=== PATIENT | female | born 1965 ===

== ENCOUNTER 2016-11-15 09:02 | Emergency (ER) | payer OTHER ==
[2016-11-15 09:15] VITALS: BMI 37.7
--- NOTE | 2016-11-15 09:52 | C.PDOC ---
History Of Present Illness 51 year old female presents to ED with complaints of left leg pain for about one month and gradually worsening over the past 2 weeks. She states she has noticed increased swelling to left leg and has pain to her inner thigh which radiates to knee and calf. She admits to chronic knee pain and has received prior injections to knee, but not recent. She ambulates with cane. Patient takes meloxicam daily for pain, took dose today without relief. Denies any chest pain, SOB, dizziness, numbness, weakness or injury. Time Seen by Provider: 11/15/16 09:25 Chief Complaint (Nursing): Lower Extremity Problem/Injury History Per: Patient History/Exam Limitations: no limitations Onset/Duration Of Symptoms: Days Current Symptoms Are (Timing): Still Present Past Medical History Reviewed: Historical Data, Nursing Documentation, Vital Signs Vital Signs: Last Vital Signs Temp 97.5 F L 11/15/16 11:14 Pulse 65 11/15/16 11:14 Resp 16 11/15/16 11:14 BP 127/85 11/15/16 11:14 Pulse Ox 97 11/15/16 12:44 - Medical History PMH: Bipolar Disorder, CAD, HTN, Hypercholesterolemia, Hypothyroidism Surgical History: Cholecystectomy Family History: States: No Known Family Hx - Social History Hx Tobacco Use: No Hx Alcohol Use: No Hx Substance Use: No - Immunization History Hx Tetanus Toxoid Vaccination: Yes Hx Influenza Vaccination: No (2013) Hx Pneumococcal Vaccination: No Review Of Systems Constitutional: Negative for: Fever, Chills Cardiovascular: Negative for: Chest Pain Respiratory: Negative for: Shortness of Breath Musculoskeletal: Positive for: Leg Pain Skin: Negative for: Rash Neurological: Negative for: Weakness, Numbness, Dizziness Physical Exam - Physical Exam Appears: Non-toxic, No Acute Distress Skin: Warm, Dry, No Rash Head: Atraumatic, Normacephalic Eye(s): bilateral: Normal Inspection Oral Mucosa: Moist Neck: Normal ROM Chest: Symmetrical Cardiovascular: Rhythm Regular, No Murmur Respiratory: Normal Breath Sounds, No Rales, No Rhonchi, No Wheezing Extremity: Tenderness (to left inner thigh, diffuse knee), Pedal Edema (Trace bilateral), Calf Tenderness (No erythema, no palpable cord,), Swelling ( noticeable swelling to left leg, mild ), Other (varicose vein ) Pulses: Left Dorsalis Pedis: Normal, Right Dorsalis Pedis: Normal Neurological/Psych: Oriented x3, Normal Speech Gait: With Assistance (Cane) ED Course And Treatment O2 Sat by Pulse Oximetry: 97 (RA) Pulse Ox Interpretation: Normal Medical Decision Making Medical Decision Making: Impression: left leg pain, rule out DVT Prior records reviewed: LE MRI from 06/28/16 shows thining of ACL suggestive of sprain and possible small tear of medial meniscus. Focal cartilage thinning. Small suprapatellar joint effusion. Plan: * Ultram * Venous doppler Progress, Reassess and Dispo: Venous doppler was negative. Patient remained well in no distress. Upon re- evaluation she reports pain improving. She is ambulating with cane. REcommend rest, elevation and follow up with orthopedic Disposition Counseled Patient/Family Regarding: Diagnosis, Need For Followup, Rx Given - Disposition Referrals: Dilia Littlejohn MD [Staff Provider] - Chris Jaquez III, MD [Staff Provider] - Disposition: HOME/ ROUTINE Disposition Time: 10:53 Condition: STABLE Additional Instructions: Young un seguimiento con la clnica o fernandez mdico de cabecera para gregorio evaluacin posterior. [place] tom medicamentos usuales segn lo recetado para cualquier dolor Tramadol es para el dolor juany segn sea necesario cada 8 horas El estudio Doppler fue negativo Regrese al servicio de urgencias en cualquier momento si los sntomas persisten o empeoran. Usted puede llamar al servicio de conserjera para cualquier ayuda [phone]. Prescriptions: traMADol [Ultram] 50 mg PO Q8 #20 tab Instructions: Knee Pain (ED) Forms: [employer] (Kyrgyz) Print Language: MEXICAN - POA Present On Arrival: None - Clinical Impression Clinical Impression: Pain of left knee and lower leg - PA / INDUSTRIAL PARAMEDIC / Resident Statement MD/DO has reviewed & agrees with the documentation as recorded. - Scribe Statement The provider has reviewed the documentation as recorded by the Scribviviane Lundy All medical record entries made by the Scribe were at my direction and personally dictated by me. I have reviewed the chart and agree that the record accurately reflects my personal performance of the history, physical exam, medical decision making, and the department course for this patient. I have also personally directed, reviewed, and agree with the discharge instructions and disposition.
[2016-11-15 11:15] VITALS: BP 127/85; PULSE 65; RESP 16; TEMP 97.5
[2016-11-15 12:45] VITALS: O2SAT 97
--- NOTE | 2016-11-19 10:38 | VASCLAB ---
PROCEDURE: Left Lower Extremity Venous Duplex Exam. HISTORY: pain left thigh and calf PRIORS: None. TECHNIQUE: Left common femoral, femoral, popliteal and posterior tibial, peroneal and great saphenous veins were evaluated. Flow was assessed with color Doppler, compressibility, assessment of phasic flow and augmentation response. Report prepared by MARIA LUISA Rodriguez, RVT FINDINGS: LEFT: 1. Common Femoral Vein: 1.1. Compressibility - Fully compressible: Thrombus - None : Flow - Phasic: Augmentation -Normal: Reflux - None. 2. Femoral Vein: 2.1. Compressibility - Fully compressible: Thrombus - None: Flow - Phasic: Augmentation -Normal: Reflux - None. 3. Popliteal Vein: 3.1. Compressibility - Fully compressible: Thrombus - None: Flow - Phasic: Augmentation -Normal: Reflux - None. 4. Posterior Tibial Vein: 4.1. Compressibility - Fully compressible: Thrombus - None: Flow - Phasic: Augmentation -Normal: Reflux - None. 5. Peroneal Vein: 5.1. Compressibility - Fully compressible: Thrombus - None: Flow - Phasic: Augmentation -Normal: Reflux - None. 6. Great Saphenous Vein: 6.1. Compressibility - Fully compressible: Thrombus - None: Flow - Phasic: Augmentation - Normal: Reflux - None. OTHER FINDINGS: IMPRESSION: No evidence of deep or superficial vein thrombosis of the left lower extremity with excellent venous flow. Normal valve function noted of the left side. Normal venous flow noted in the right common femoral vein.
== END 2016-11-15 11:16 | disposition home or self-care (01) ==
LOC: C.ER 09:02
DX: M25.562 Pain in left knee (principal)

== ENCOUNTER 2018-08-21 16:50 | Emergency (ER) | payer MEDICAID, OTHER ==
[2018-08-21 16:51] VITALS: BMI 38.4
[2018-08-21 17:03] VITALS: BP 133/87; TEMP 98.7
[2018-08-21] MEDS ORDERED: Sodium Chloride 0.9% 1,000 ML IV ONE (18:04)
[2018-08-21] MEDS ORDERED: Sodium Chloride 0.9% 1,000 ML ONE (18:35)
[2018-08-21 19:36] LABS: BASO # 0.1 K/uL (0.0-0.2); BASO % 1.1 % (0.0-2.0); EOS # 0.1 K/uL (0.0-0.7); EOS % 0.9 % (0.0-4.0); HEMOGLOBIN 13.6 g/dL (11.0-16.0); LYMPH # 3.7 K/uL (1.0-4.3); LYMPH % 41.1 % (20.0-40.0); MEAN CELL VOLUME 91.8 fL (81.0-99.0); MEAN CORPUSCULAR HEMOGLOBIN 30.8 pg (27.0-31.0); MEAN CORPUSCULAR HGB CONC 33.5 g/dL (33.0-37.0); MEAN PLATELET VOLUME 9.8 fL (7.2-11.7); MONO % 11.6 % (0.0-10.0); NEUT % 45.3 % (50.0-75.0); RBC 4.43 Mil/uL (3.80-5.20); WHITE BLOOD COUNT 8.9 K/uL (4.8-10.8)
[2018-08-21 19:41] LABS: SQUAMOUS EPITHIAL 3 /hpf (0-5); URINE BACTERIA MOD (<OCC); URINE BILIRUBIN NEGATIVE (NEGATIVE); URINE BLOOD NEGATIVE (NEGATIVE); URINE CLARITY Hazy (Clear); URINE COLOR Yellow (YELLOW); URINE GLUCOSE (UA) NORMAL (Normal); URINE LEUKOCYTE ESTERASE 1+ Leu/uL (Negative); URINE PROTEIN 1+ mg/dL (NEGATIVE); URINE UROBILINOGEN NORMAL mg/dL (0.2-1.0)
[2018-08-21 19:46] LABS: ALB/GLOB RATIO 1.2 (1.0-2.1); ALBUMIN 4.4 g/dL (3.5-5.0); ALT/SGPT 32 U/L (9-52); AST/SGOT 44 U/L (14-36); BLOOD UREA NITROGEN 12 mg/dL (7-17); CALCIUM 9.6 mg/dl (8.6-10.4); GFR NON-AFRICAN AMERICAN > 60; LIPASE 78 U/L (23-300)
[2018-08-21 19:57] LABS: B-TYPE NATRIURETIC PEPTIDE 32.3 pg/mL (0-900)
[2018-08-21] MEDS ORDERED: Magnesium Citrate Oral SOL (300 ml) PO ONE (20:07)
--- NOTE | 2018-08-21 20:07 | C.PDOC ---
History Of Present Illness 53 y/o female presents to ED complaining of cramping abdominal pain and occasional vomiting for the last 2 weeks. Patient eats a normal [place] diet based on rice, beans, and meat, no vegetables or PO fluids. She does not note of significant weight loss. Denies reflux disease. Time Seen by Provider: 08/21/18 17:56 Chief Complaint (Nursing): GI Problem History Per: Patient History/Exam Limitations: no limitations Onset/Duration Of Symptoms: Days Past Medical History Reviewed: Historical Data, Nursing Documentation, Vital Signs Vital Signs: Last Vital Signs Temp 98.7 F 08/21/18 17: Pulse 60 08/21/18 17:01 Resp 18 08/21/18 17:01 BP 133/87 08/21/18 17: Pulse Ox 97 08/21/18 17:01 Primary Care Provider: FAMILY PROVIDER,NO - Medical History PMH: Bipolar Disorder, CAD, HTN, Hypercholesterolemia, Hypothyroidism Surgical History: Cholecystectomy Family History: States: No Known Family Hx - Social History Hx Tobacco Use: No Hx Alcohol Use: No Hx Substance Use: No - Immunization History Hx Tetanus Toxoid Vaccination: Yes Hx Influenza Vaccination: No (2013) Hx Pneumococcal Vaccination: No Review Of Systems Except As Marked, All Systems Reviewed And Found Negative. Constitutional: Positive for: Other (3 years of developing buffalo hump, superclavicular fat pads). Negative for: Weight loss Gastrointestinal: Positive for: Vomiting, Abdominal Pain, Other (central obesity). Negative for: Nausea, Diarrhea Physical Exam - Physical Exam Appears: Non-toxic, No Acute Distress, Other (morbidly obese) Skin: Warm, Dry Head: Normacephalic, Other (plethoric face) Eye(s): bilateral: Normal Inspection Oral Mucosa: Moist Neck: Supple, Other (large buffalo hump) Chest: Other (supraclavicular fat pads) Cardiovascular: Rhythm Regular, No Murmur Respiratory: Normal Breath Sounds, No Rales, No Rhonchi, No Wheezing Gastrointestinal/Abdominal: Soft, No Guarding, No Rebound, Other (central obesity, abdomen globus, alternatingly dull and tympanic to percussion) Extremity: Other (lower extremities obese without edema) Extremity: Bilateral: Normal Color And Temperature Neurological/Psych: Oriented x3, Normal Speech ED Course And Treatment - Laboratory Results Result Diagrams: 08/21/18 18:45 08/21/18 18:45 Lab Results: Troponin I < 0.0120 ng/mL (0.00-0.120) 08/21/18 18:45 NT-Pro-B Natriuret Pep 32.3 pg/mL (0-900) 08/21/18 18:45 Total Bilirubin 0.4 mg/dL (0.2-1.3) 08/21/18 18:45 AST 44 U/L (14-36) H 08/21/18 18:45 ALT 32 U/L (9-52) 08/21/18 18:45 Alkaline Phosphatase 47 U/L (38-126) 08/21/18 18:45 Total Protein 7.9 g/dL (6.3-8.3) 08/21/18 18:45 Albumin 4.4 g/dL (3.5-5.0) 08/21/18 18:45 Globulin 3.5 gm/dL (2.2-3.9) 08/21/18 18:45 Albumin/Globulin Ratio 1.2 (1.0-2.1) 08/21/18 18:45 Lipase 78 U/L (23-300) 08/21/18 18:45 Urine Color Yellow (YELLOW) 08/21/18 18:45 Urine Clarity Hazy (Clear) 08/21/18 18:45 Urine pH 5.0 (5.0-8.0) 08/21/18 18:45 Ur Specific [place] 1.024 (1.003-1.030) 08/21/18 18:45 Urine Protein 1+ mg/dL (NEGATIVE) H 08/21/18 18:45 Urine Glucose (UA) Normal mg/dL (Normal) 08/21/18 18:45 Urine Ketones Negative mg/dL (NEGATIVE) 08/21/18 18:45 Urine Blood Negative (NEGATIVE) 08/21/18 18:45 Urine Nitrate Negative (NEGATIVE) 08/21/18 18:45 Urine Bilirubin Negative (NEGATIVE) 08/21/18 18:45 Urine Urobilinogen Normal mg/dL (0.2-1.0) 08/21/18 18:45 Ur Leukocyte Esterase 1+ Smith/uL (Negative) H 08/21/18 18:45 Urine WBC (Auto) 14 /hpf (0-5) H 08/21/18 18:45 Urine RBC (Auto) 1 /hpf (0-3) 08/21/18 18:45 Ur Squamous Epith Cells 3 /hpf (0-5) 08/21/18 18:45 Urine Bacteria Mod (<OCC) H 08/21/18 18:45 Lab Interpretation: Normal (ua neg.) O2 Sat by Pulse Oximetry: 97 (RA) Pulse Ox Interpretation: Normal - Radiology CXR: Interpreted by Me CXR Interpretation: Yes: No Acute Disease - Other Rad abd x 2 X-Ray: Interpreted by Me (+FOS) Reevaluation Time: 20:06 Reassessment Condition: Improved Medical Decision Making Medical Decision Making: Plan: --EKG --Labs --Obstructive Series --Magnesium Citrate --IV fluids --Zofran --UA chronic constipation laxative now diet/exercise ? gastritis/vomiting pepcid/zofran [place] Hump/Central Obesity x 3 years No chronic steroid meds per pt ? Effie's Syndrome Consider ACTH levels and 24 urine cortisol levels ? Bipolar Dz No psych meds Not apparent bipolar on exam often confused with Augstin Syndrome Re-address after Cortisol levels evaled Disposition Doctor Will See Patient In The: Office Counseled Patient/Family Regarding: Studies Performed, Diagnosis - Disposition Referrals: [facility] [Outside] [facility] [Outside] [facility] [Outside] [facility] [Outside] Reji Stark MD [Staff Provider] - Disposition: HOME/ ROUTINE Disposition Time: 20:06 Condition: GOOD Additional Instructions: Gastritis/vomitos Pepcid 20 mg cada 12 horas- se baja el acides del estomago Vomitos Zofran 4 mg ODT 1 tableta cada 8 horas kerry necessario para nausea/vomitos [place] Emma purgante ahora re-evalua despues de usar el nicolas 2-3 veces Cambios de dieta y ejercisio emma mas agua PUrgantes occasionalmente kerry necessario Sigue con la [facility] kerry necessario. Prescriptions: Ondansetron ODT [Zofran ODT] 4 mg PO Q6H PRN #6 odt PRN Reason: Nausea/Vomiting Instructions: Effie's Syndrome, Constipation, Adult (DC), Nausea and Vomiting, Adult (DC) Forms: [employer] (Mauritian) Print Language: BENGALI - Clinical Impression Clinical Impression: Vomiting, Abdominal pain, colicky - Scribe Statement The provider has reviewed the documentation as recorded by the Zay Ayala Provider Attestation: All medical record entries made by the Zay were at my direction and personally dictated by me. I have reviewed the chart and agree that the record accurately reflects my personal performance of the history, physical exam, medical decision making, and the department course for this patient. I have also personally directed, reviewed, and agree with the discharge instructions and disposition.
[2018-08-21] MEDS ORDERED: Magnesium Citrate Oral SOL (300 ml) ONE ×2 (20:17→20:23)
[2018-08-21 20:21] VITALS: PULSE 84; RESP 16
[2018-08-21 20:23] VITALS: O2SAT 97
--- NOTE | 2018-08-22 07:23 | RAD ---
Abdomen four views HISTORY: Abdominal pain. COMPARISON: None available. FINDINGS: Mild venous congestion. Right hilar prominence. Tortuous aorta. Heart size within normal limits. Degenerative changes in the spine. Surgical clips in the right gavin abdomen. Moderate fecal retention in the colon. Calcified phleboliths in the pelvis. Degenerative changes in the spine and hips. IMPRESSION: Moderate fecal retention in the colon.
== END 2018-08-21 20:20 | disposition home or self-care (01) ==
LOC: C.ER 16:50
DX: R10.84 Generalized abdominal pain (principal); R11.10 Vomiting, unspecified
CPT/HCPCS: 74022; 80053; 81001; 83690; 83880; 84484; 85025; 96361; 96374; 96375; 99284; C9113; J2405; J7030